=== PATIENT | female | born 1960 | race Caucasian/White ===

== ENCOUNTER 2017-02-02 14:35 | Emergency (ER) | payer BC ==
[~2017-02-02] VITALS: Ht 162.6 cm; Wt 59.0 kg
[2017-02-02] MEDS ORDERED: GADODIAMIDE PF 287 MG/ML 5 ML VIAL (for RAD MRI) IVCONTRAST ONE (14:36)
[2017-02-02 14:37] VITALS: BP 151/78; PULSE 62; RESP 14; TEMP 98.2; O2SAT 98
--- NOTE | 2017-02-02 15:58 | PD ---
HPI Chief Complaint: Eye Problems/Injury Time Seen by Provider: 15:47 Travel History International Travel<30 days: No Contact w/Intl Traveler<30days: No Traveled to known affect area: No History of Present Illness HPI 56-year-old female presents to the ED for evaluation of a months history of floaters, flashers behind the right eye. She was seen by Dr. Christiano Salguero, retina specialist, today who sent her for emergent MRI with concern for optic disc changes and/or optic neuritis. The patient endorses a history of chronic migraines behind the right eye. 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 She has a follow-up appointment with Dr. Ric Rojas, neurologist, in [place] on 02/06 . [facility] Past Medical History Migraines: Yes ?: Unknown Past Surgical History Ear Surgery: Yes (INFECTION AUGUST 2015) Gynecologic Surgery: Yes Social History Alcohol Use: No Tobacco Use: No Substance Use: No Allergies-Medications (Allergen,Severity, Reaction): Coded Allergies: No Known Allergies (Verified Allergy, Unknown, 02/02/17) Reported Meds & Prescriptions Reported Meds & Active Scripts Active No Active Prescriptions or Reported Medications Review of Systems Except as stated in HPI: all other systems reviewed are Neg Physical Exam Narrative GENERAL: Well-nourished, well-developed pleasant white female in no acute distress. SKIN: Focused skin assessment warm/dry. HEAD: Normocephalic. EYES: No scleral icterus. No injection or drainage. Eyes are dilated. FUNDUSCOPIC EXAM: The bilateral funduscopic exam appeared within normal limits without papilledema, A-V nicking or blood associated with the optic disc. NECK: Supple, trachea midline. No JVD or lymphadenopathy. Well-healed surgical scar with bony defect in the area of the right mastoid process. CARDIOVASCULAR: Regular rate and rhythm without murmurs, gallops, or rubs. RESPIRATORY: Breath sounds and equal bilaterally. No accessory muscle use. GASTROINTESTINAL: Abdomen soft, non-tender, nondistended. Active bowel sounds. MUSCULOSKELETAL: No cyanosis, or edema. NEUROLOGICAL: Awake and alert. Cranial nerves II through XII intact. Motor and sensory grossly within normal limits. Five out of 5 muscle strength in all muscle groups. Normal speech. BACK: Nontender without obvious deformity. No CVA tenderness. Data Data Last Documented VS Vital Signs Date Time Temp Pulse Resp B/P (MAP) Pulse Ox O2 Delivery O2 Flow Rate FiO2 02/02/17 19:49 02/02/17 14:37 98.2 62 14 98 Orders Orders Mri Orbits W&W/O Contrast (02/02/17 ) ^ Insert Iv (02/02/17 15:49) Complete Blood Count With Diff (02/02/17 15:49) Basic Metabolic Panel (Bmp) (02/02/17 15:49) Westergren Sedimentation Rate (02/02/17 15:52) Mri Brain W&W/O Contrast (02/02/17 ) Radiology Film Requests (02/02/17 ) Gadodiamide Pf Inj (Omniscan Pf Inj) (02/02/17 14:36) Ed Discharge Order (02/02/17 19:26) Labs Laboratory Tests Test 02/02/17 15:04 White Blood Count 6.3 TH/MM3 Red Blood Count 3.98 MIL/MM3 Hemoglobin 12.3 GM/DL Hematocrit 36.1 % Mean Corpuscular Volume 90.7 FL Mean Corpuscular Hemoglobin 31.0 PG Mean Corpuscular Hemoglobin Concent 34.2 % Red Cell Distribution Width 13.0 % Platelet Count 158 TH/MM3 Mean Platelet Volume 8.6 FL Neutrophils (%) (Auto) 56.7 % Lymphocytes (%) (Auto) 35.2 % Monocytes (%) (Auto) 6.8 % Eosinophils (%) (Auto) 1.1 % Basophils (%) (Auto) 0.2 % Neutrophils # (Auto) 3.6 TH/MM3 Lymphocytes # (Auto) 2.2 TH/MM3 Monocytes # (Auto) 0.4 TH/MM3 Eosinophils # (Auto) 0.1 TH/MM3 Basophils # (Auto) 0.0 TH/MM3 CBC Comment DIFF FINAL Differential Comment Erythrocyte Sedimentation Rate 25 mm/hr Blood Urea Nitrogen 14 MG/DL Creatinine 0.63 MG/DL Random Glucose 84 MG/DL Calcium Level 9.6 MG/DL Sodium Level 142 MEQ/L Potassium Level 3.7 MEQ/L Chloride Level 108 MEQ/L Carbon Dioxide Level 29.1 MEQ/L Anion Gap 5 MEQ/L Estimat Glomerular Filtration Rate 97 ML/MIN MDM Medical Decision Making Medical Screen Exam Complete: Yes Emergency Medical Condition: Yes Differential Diagnosis Optic neuritis versus space-occupying tumor versus migraine versus other Narrative Course 56-year-old female presents to the ED for evaluation of a months history of floaters, flashers behind the right eye. She was seen by Dr. Christiano Salguero, retina specialist, today who sent her for emergent MRI with concern for optic disc changes and/or optic neuritis. The patient endorses a history of chronic migraines behind the right eye. 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 She has a follow-up appointment with Dr. Ric Rojas, neurologist, in [place] on 02/06 . I spoke with Dr. Salguero who does not recommend initiation of steroids prior to imaging. Vitals reviewed. Physical exam reveals a nontoxic-appearing white female in no acute distress. Her eyes are dilated but I don't see any visible changes. No focal neuro defects. She does show me a picture of her retina and optic disc that shows that the disc is irregular and inflamed. MRI of the brain and orbits negative per radiology read. Again I spoke with Dr. Salguero to does not recommend any treatment at this time. The patient was provided with a CD of her images as well as the paper copies of her reports. She is to follow-up with the neurologist on Sunday as planned. The patient and her indicated understanding of instructions and are agreeable a plan. The patient is stable and discharged home. Diagnosis Primary Impression: Floaters in visual field Qualified Codes: H43.392 - Other vitreous opacities, left eye Additional Impression: Vision changes Referrals: Neurologist Additional Instructions: Rest, hydrate. Return to normal, gentle activity as tolerated. Follow-up with the neurologist on Sunday as planned. Return to the ED for any urgent or emergent medical condition. Scripts No Active Prescriptions or Reported Meds Disposition: 01 DISCHARGE HOME Condition: Stable Saida Pulido Feb 02, 2017 15:58
[2017-02-02 16:22] LABS: AUTOMATED NEUTROPHIL # 3.6 TH/MM3 (1.8-7.7); BASOPHIL % 0.2 % (0.0-2.0); EOSINOPHIL # 0.1 TH/MM3 (0-0.4); EOSINOPHIL % 1.1 % (0.0-4.0); HEMATOCRIT 36.1 % (35.0-46.0); HEMO FLAGS DIFF FINAL; LYMPH % 35.2 % (9.0-44.0); LYMPHOCYTE # 2.2 TH/MM3 (1.0-4.8); MEAN CELL VOLUME 90.7 FL (80.0-100.0); MEAN CORPUSCULAR HGB CONC 34.2 % (32.0-36.0); MONO % 6.8 % (0.0-8.0); NEUT % 56.7 % (16.0-70.0); PLATELET COUNT 158 TH/MM3 (150-450); RED BLOOD COUNT 3.98 MIL/MM3 (4.00-5.30); WHITE BLOOD COUNT 6.3 TH/MM3 (4.0-11.0)
[2017-02-02 16:35] LABS: BICARBONATE 29.1 MEQ/L (21.0-32.0); POTASSIUM 3.7 MEQ/L (3.5-5.1)
--- NOTE | 2017-02-02 18:40 | RADRPT ---
EXAM DATE/TIME: 02/02/2017 17:52 [facility] COMPARISON: No previous studies available for comparison. INDICATIONS : Right eye pressure, blurred vision. CONTRAST: 12 cc Omniscan (gadodiamide) IV MEDICAL HISTORY : None. SURGICAL HISTORY : Ear surgery for infection. ENCOUNTER: Initial ACUITY: 1 day PAIN SCORE: 0/10 LOCATION: cranial TECHNIQUE: Multiplanar, multisequence MRI of the brain was performed both prior to and following the administrat ion of paramagnetic contrast. FINDINGS: CEREBRUM: The ventricles are normal for age. No evidence of midline shift, mass lesion, hemorrhage or acute in farction. No extraaxial fluid collections are seen. The pituitary gland and suprasellar cistern are normal in configuration. WHITE MATTER: No significant signal abnormalities are seen in the white matter. POSTERIOR FOSSA: The cerebellum and brainstem are intact. The 4th ventricle is midline. The cerebellopontine angle is unremarkable. The cerebellar tonsils are normal in position. DIFFUSION IMAGING: No focal areas of restricted diffusion are seen. No evidence of acute infarction. EXTRACRANIAL: The visualized portions of the orbits and paranasal sinuses are unremarkable. POST-CONTRAST: No abnormal areas of parenchymal or dural enhancement. No evidence of blood-brain barrier breakdown. CONCLUSION: Normal examination. Boogie Mcqueen MD on February 02, 2017 at 18:36 Board Certified Radiologist. This report was verified electronically.
--- NOTE | 2017-02-02 18:42 | RADRPT ---
EXAM DATE/TIME: 02/02/2017 17:52 [facility] COMPARISON: No previous studies available for comparison. INDICATIONS : Right eye pressure, blurred vision. CONTRAST: 12 cc Omniscan (gadodiamide) IV MEDICAL HISTORY : None. SURGICAL HISTORY : ENCOUNTER: Initial ACUITY: 1 day PAIN SCORE: 0/10 LOCATION: cranial TECHNIQUE: Multiplanar, multisequence MRI examination was performed. FINDINGS: PRESEPTAL: The preseptal soft tissues are normal thickness. GLOBES: Normal shape without wall thickening. The lens is grossly intact. EXTRAOCULAR MUSCLES: Symmetric and normal thickness. ORBITAL TELLES: Intact. The greater wing of the sphenoid is intact. OPTIC NERVES: Normal size. The optic canal is not enlarged. The retroconal fat is normal in appearance. LACRIMAL GLANDS: No evidence of mass. RETROAPICAL REGION: The optic chiasm is grossly intact. The visualized portion of the cavernous sinus and brainstem is i ntact. CONCLUSION: Normal examination. Boogie Mcqueen MD on February 02, 2017 at 18:39 Board Certified Radiologist. This report was verified electronically.
== END 2017-02-02 19:51 | disposition home or self-care (01) ==
LOC: NEPD 14:35
DX: H43.392 Other vitreous opacities, left eye (principal)
CPT/HCPCS: 70543; 70553; 80048; 85025; 85652; 99284; A9579